=== PATIENT | male | born 1985 | race Caucasian/White ===

== ENCOUNTER 2017-05-17 11:32 | Emergency (ER) | payer SELFPAY ==
[2017-05-17 11:53] VITALS: BMI 21.6
[2017-05-17] MEDS ORDERED: MAG HYDROX/AL HYDROX/SIMETH 30 ML UNIT-DOSE CUP PO ONE (13:12)
--- NOTE | 2017-05-17 13:16 | PDOC ---
History of Present Illness - General Chief Complaint: Pain Stated Complaint: CONSTIPATION Time Seen by Provider: 05/17/17 13:08 History Source: Patient Exam Limitations: Other - History of Present Illness Timing/Duration: reports: getting worse Abdominal Pain Onset Location: reports: other (upper abd) Past History - Past Medical History Allergies/Adverse Reactions: Allergies Allergy/AdvReac Type Severity Reaction Status Date / Time No Known Allergies Allergy Verified 05/17/17 11:53 Home Medications: Ambulatory Orders Mag Hydrox/Al Hydrox/Simeth [Maalox Advanced Suspension] 770 ml PO BID PRN #120 oral.susp 05/17/17 Sucralfate [Carafate -] 1 gm PO BID PRN #120 tablet 05/17/17 COPD: No Other medical history: NONE - Suicide/Smoking/Psychosocial Hx Smoking History: Never smoked Hx Alcohol Use: Yes (SOCIAL) Drug/Substance Use Hx: No Substance Use Type: None Review of Systems - Review of Systems Constitutional: No: Chills, Fever, Unexplained wgt Loss ABD/GI: Yes: Abdominal cramping. No: Constipated, Diarrhea, Nausea, Vomiting : No: Burning, Dysuria, Flank Pain, Hematuria *Physical Exam - Vital Signs Last Vital Signs Temp Pulse Resp BP Pulse Ox 98.1 F 90 20 145/111 99 05/17/17 11:49 05/17/17 11:49 05/17/17 11:49 05/17/17 11:49 05/17/17 11:49 - Physical Exam General Appearance: Yes: Appropriately Dressed. No: Apparent Distress HEENT: positive: Normal Voice Neck: positive: Supple Respiratory/Chest: negative: Respiratory Distress Gastrointestinal/Abdominal: positive: Normal Bowel Sounds, Tender (minimal ttp to mid upper abd), Soft. negative: Distended, Guarding, Rebound Musculoskeletal: negative: CVA Tenderness Integumentary: positive: Dry, Warm Neurologic: positive: Fully Oriented, Alert, Normal Mood/Affect ED Treatment Course - LABORATORY CBC & Chemistry Diagram: 05/17/17 13:30 05/17/17 13:30 Medical Decision Making - Medical Decision Making 05/17/17 13:13 31-year-old male presenting with abdominal pain. Patient reports 6 months of mid upper abdominal pain, unable to describe. mostly constant, worse with food and also complaining of bloating. States pain worsened 3 weeks ago. No change in bowel movement, nausea, vomiting, fever or chills. Was seen by his PMD and had negative labs and right upper quadrant ultrasound per patient, not currently on any medications. See exam Possible gastritis/ulcer No excessive etoh or nsaids uae Neg w/u including labs/US in pmd's office Stable w/ unimpressive abd exam -GI cocktail>reassess -labs -anticipate dc w/ GI referral for possible scope 05/17/17 13:51 Signed out to resident *DC/Admit/Observation/Transfer Diagnosis at time of Disposition: Gastritis - Discharge Dispostion Disposition: HOME Condition at time of disposition: Improved - Prescriptions Prescriptions: Mag Hydrox/Al Hydrox/Simeth [Maalox Advanced Suspension] 770 ml PO BID PRN #120 oral.susp PRN Reason: abdominal pain Sucralfate [Carafate -] 1 gm PO BID PRN #120 tablet PRN Reason: Abdominal Pain - Referrals Referrals: Jacob Bashir MD [Staff Physician] - - Patient Instructions Printed Discharge Instructions: DI for Peptic Ulcer Additional Instructions: You were seen for stomach pain. Your labs looked fine but you need to see a rag sorter and may need a scope to look at your stomach. Please take the stomach medications if you have abdominal pain. Please return if your stomach pain does not get better with your medication or if you get new or worsening symptoms. - Post Discharge Activity
[2017-05-17] MEDS ORDERED: SUCRALFATE 1 GM TABLET (FP) ONE (13:34)
[2017-05-17] MEDS ORDERED: MAG HYDROX/AL HYDROX/SIMETH 30 ML UNIT-DOSE CUP ONE (13:34)
[2017-05-17] MEDS ORDERED: FAMOTIDINE 20 MG/50 ML IVPB 20 MG/50 ML MG IVPB ONE (13:34)
[2017-05-17] MEDS ORDERED: SUCRALFATE 1 GM/10 ML UNIT DOSE CUPS PO ONE (13:40)
[2017-05-17] MEDS ORDERED: FAMOTIDINE IV 20 MG/12 ML VIAL IVPUSH ONE (13:41)
[2017-05-17 13:51] LABS: BASOPHIL 1.3 % (0-2.0); EOSINOPHIL 1.6 % (0-4.5); MCH 32.1 pg (25.7-33.7); MCHC 33.8 g/dl (32.0-35.9); MEAN CELL VOLUME 95.2 fl (80-96); MEAN PLT VOLUME 10.3 fl (7.5-11.1); NEUTROPHILS 55.8 % (42.8-82.8); PLATELET COUNT 175 K/MM3 (134-434); RDW 13.1 % (11.9-15.9)
--- NOTE | 2017-05-17 13:51 | PDOC ---
*Physical Exam - Vital Signs Last Vital Signs Temp Pulse Resp BP Pulse Ox 98.1 F 90 20 145/111 99 05/17/17 11:49 05/17/17 11:49 05/17/17 11:49 05/17/17 11:49 05/17/17 11:49 ED Treatment Course - LABORATORY CBC & Chemistry Diagram: 05/17/17 13:30 05/17/17 13:30 - Medications Given in the ED: ED Medications Discontinued Medications Generic Name Dose Route Start Last Admin Trade Name Lisa PRN Reason Stop Dose Admin Al Hydroxide/Mg Hydroxide 30 ml 05/17/17 13:12 05/17/17 13:40 Mylanta Oral Suspension - PO 05/17/17 13:13 30 ml ONCE ONE Administration Famotidine 20 mg in 12 mls @ 144 mls/hr 05/17/17 13:41 05/17/17 13:49 Pepcid 20 Mg/12 Ml Push IVPUSH 05/17/17 13:45 144 mls/hr ONCE ONE Administration Sucralfate 1 gm 05/17/17 13:40 05/17/17 13:49 Carafate Oral Suspension - PO 05/17/17 13:41 1 gm ONCE ONE Administration Medical Decision Making - Medical Decision Making 31 year old male presenting for what appears to be nonspecific gastritis with resolving symptoms after GI cocktail and asing to go home. No concerning vitals or laboratory values. Will DC home with GI follow up for endoscopy and prescription for Maalox. 05/17/17 15:28 *DC/Admit/Observation/Transfer Diagnosis at time of Disposition: Gastritis Qualifiers: Gastritis type: unspecified gastritis Chronicity: acute Gastritis bleeding: without bleeding Qualified Code(s): K29.00 - Acute gastritis without bleeding - Discharge Dispostion Disposition: HOME Condition at time of disposition: Improved Admit: No - Prescriptions Prescriptions: Mag Hydrox/Al Hydrox/Simeth [Maalox Advanced Suspension] 770 ml PO BID PRN #120 oral.susp PRN Reason: abdominal pain Sucralfate [Carafate -] 1 gm PO BID PRN #120 tablet PRN Reason: Abdominal Pain - Referrals Referrals: Jacob Bashir MD [Staff Physician] - - Patient Instructions Printed Discharge Instructions: DI for Peptic Ulcer Additional Instructions: You were seen for stomach pain. Your labs looked fine but you need to see a manager erp and may need a scope to look at your stomach. Please take the stomach medications if you have abdominal pain. Please return if your stomach pain does not get better with your medication or if you get new or worsening symptoms. - Post Discharge Activity
[2017-05-17 14:15] LABS: ALBUMIN 4.2 g/dl (3.4-5.0); ANION GAP 7 (8-16); BILIRUBIN,TOTAL 0.8 mg/dL (0.2-1.0); CALCIUM 9.5 mg/dL (8.5-10.1); CO2 26 mmol/L (21-32); CREATININE 0.7 mg/dL (0.7-1.3); GLUCOSE,RANDOM 95 mg/dL (74-106); SGOT/AST 12 U/L (15-37); SGPT/ALT 33 U/L (12-78); TOT PROT 7.1 g/dl (6.4-8.2)
[2017-05-17 14:16] LABS: ALK PHOS 68 U/L (45-117)
[2017-05-17 15:36] VITALS: BP 125/73; PULSE 60; TEMP 98
[2017-05-17 15:36] LABS: URINE APPEARANCE CLEAR; URINE BILIRUBIN NEGATIVE (NEGATIVE); URINE COLOR LT. YELLOW; URINE GLUCOSE (UA) NEGATIVE (NEGATIVE); URINE KETONE NEGATIVE (NEGATIVE); URINE NITRITE NEGATIVE (NEGATIVE); URINE PROTEIN NEGATIVE (NEGATIVE); URINE UROBILINOGEN 0.2 mg/dL (0.2-1.0)
[2017-05-17 16:42] LABS: URINE BLOOD 1+ (NEGATIVE)
[2017-05-17 17:05] LABS: URINE MUCUS RARE; URINE RBC 2 /hpf (0-3)
[2017-05-17 18:42] LABS: URINE LEUK ESTERASE Negative (NEGATIVE)
[2017-05-17] MEDS ORDERED: SUCRALFATE 1 GM TABLET (FP) PO SCH (22:00)
[2017-05-17] MEDS ORDERED: FAMOTIDINE IV 20 MG/12 ML VIAL IVPUSH SCH (22:00)
== END 2017-05-17 17:12 | disposition home or self-care (01) ==
LOC: JER 11:32
PROC: 3E033GC Introduction of Other Therapeutic Substance into Peripheral Vein, Percutaneous Approach (ICD-10-PCS; principal; 2017-05-17)
DX: K29.00 Acute gastritis without bleeding (principal)
CPT/HCPCS: 36415; 80053; 81003; 81015; 83690; 85025; 99283-25